=== PATIENT | male | born 1935 | race Caucasian/White ===

== ENCOUNTER → 2016-08-22 | Outpatient (REF) | payer MEDICARE ==
[2016-08-22 12:31] LABS: MEAN CORPUSCULAR HEMOGLOBIN 30.5 pg (27.0-33.0); MEAN CORPUSCULAR HGB CONC 34.2 g/dl (32.0-36.5); MEAN CORPUSCULAR VOLUME 89.4 fl (80.0-96.0); RED CELL DISTRIBUTION WIDTH 12.5 % (11.5-14.5)
[2016-08-22 12:45] LABS: ALBUMIN 3.6 GM/DL (3.2-5.2); ALBUMIN/GLOBULIN RATIO 1.24 (1.00-1.93); ALKALINE PHOSPHATASE 60 U/L (45-117); ALT/SGPT 36 U/L (12-78); ANION GAP 8 MEQ/L (8-16); AST/SGOT 25 U/L (15-37); BILIRUBIN,TOTAL 0.4 MG/DL (0.2-1.0); BLOOD UREA NITROGEN 20 MG/DL (7-18); CALCIUM LEVEL 9.1 MG/DL (8.8-10.2); CARBON DIOXIDE LEVEL 28 MEQ/L (21-32); CHLORIDE LEVEL 107 MEQ/L (98-107); CHOLESTEROL LEVEL 215 MG/DL (<200); CREATININE FOR GFR 1.14 MG/DL (0.70-1.30); GLOMERULAR FILTRATION RATE > 60.0 (>42); GLUCOSE, FASTING 100 MG/DL (83-110); POTASSIUM SERUM 4.4 MEQ/L (3.5-5.1); SODIUM LEVEL 143 MEQ/L (136-145); TOTAL PROTEIN 6.5 GM/DL (6.4-8.2); TRIGLYCERIDES LEVEL 127 MG/DL (<150)
== END | disposition home or self-care (01) ==
LOC: M LABDRAW1 12:04
PROVIDERS: ATTEND Nurse Practitioner Family
DX: E78.5 Hyperlipidemia, unspecified (principal); I10 Essential (primary) hypertension; D53.9 Nutritional anemia, unspecified

== ENCOUNTER → 2016-11-27 | Outpatient (REF) | payer MEDICARE ==
[2016-11-27 12:28] LABS: MEAN CORPUSCULAR HEMOGLOBIN 30.1 pg (27.0-33.0); MEAN CORPUSCULAR HGB CONC 34.2 g/dl (32.0-36.5); MEAN CORPUSCULAR VOLUME 88.1 fl (80.0-96.0); RED CELL DISTRIBUTION WIDTH 12.8 % (11.5-14.5); WHITE BLOOD COUNT 5.7 K/mm3 (4.0-10.0)
[2016-11-27 12:37] LABS: ALBUMIN 3.6 GM/DL (3.2-5.2); ALBUMIN/GLOBULIN RATIO 1.29 (1.00-1.93); ALKALINE PHOSPHATASE 60 U/L (45-117); ALT/SGPT 25 U/L (12-78); ANION GAP 6 MEQ/L (8-16); AST/SGOT 25 U/L (15-37); BILIRUBIN,TOTAL 0.4 MG/DL (0.2-1.0); BLOOD UREA NITROGEN 18 MG/DL (7-18); CALCIUM LEVEL 8.8 MG/DL (8.8-10.2); CARBON DIOXIDE LEVEL 29 MEQ/L (21-32); CHLORIDE LEVEL 106 MEQ/L (98-107); CHOLESTEROL LEVEL 139 MG/DL (<200); CREATININE FOR GFR 1.17 MG/DL (0.70-1.30); GLOMERULAR FILTRATION RATE > 60.0 (>42); GLUCOSE, FASTING 96 MG/DL (83-110); POTASSIUM SERUM 4.2 MEQ/L (3.5-5.1); SODIUM LEVEL 141 MEQ/L (136-145); TOTAL PROTEIN 6.4 GM/DL (6.4-8.2); TRIGLYCERIDES LEVEL 65 MG/DL (<150)
== END ==
LOC: M LABDRAW1 11:37
PROVIDERS: ATTEND Nurse Practitioner Family
DX: E55.9 Vitamin D deficiency, unspecified (principal); K21.9 Gastro-esophageal reflux disease without esophagitis; E78.00 Pure hypercholesterolemia, unspecified

== ENCOUNTER → 2017-02-05 | Outpatient (CLI) | payer MEDICARE ==
[2017-02-07 00:06] LABS: Lyme Disease IgG/IgM Antibodie <0.91 ISR (0.00-0.90); Lyme Disease IgM Ab Quantitati <0.80 index (0.00-0.79)
== END ==
LOC: M WUC 10:53
PROVIDERS: ATTEND Physician Assistant
DX: S40.862A Insect bite (nonvenomous) of left upper arm, initial encounter (principal); X58.XXXA Exposure to other specified factors, initial encounter; Y92.9 Unspecified place or not applicable; Y93.9 Activity, unspecified; Y99.9 Unspecified external cause status

== ENCOUNTER → 2017-03-05 | Day surgery (SDC) | payer MEDICARE ==
[~2017-03-05] VITALS: Ht 175.3 cm; Wt 78.0 kg
[~2017-03-05] MED LIST: ACETAMINOPHEN 325 MG TAB PO PRN; AcetaZOLAMIDE 500 MG ER CAP As Ordered ONE; AcetaZOLAMIDE 500 MG ER CAP PO ONE; BSS with VANC/TOB/EPI for EYE CASES IR ONE; CRES10TA32 PO; CYCLOPENTOLATE 2% OPHTH SOLN 2ML BTL OD ONE; DOXY-278 PO; HEALON DUET (HEALON 10MG/ML 0.55ML & HEALON ENDOCOAT 30MG/ML 0.85ML) As Ordered ONE; KETOROLAC 0.5% OPHTH SOLN OD ONE; LIDOCAINE 1% SDV 5 ML VIAL As Ordered ONE; LIDOCAINE 4% INJ 5 ML AMP OU ONE; LR 1,000 ML IV ONE; MIDAZOLAM INJ 2 MG/2 ML VIAL (J2250) As Ordered ONE; MOXIFLOXACIN IN BSS 0.25MG/0.25ML INTRACAMERAL INJ (OR EYE ONLY)(J2280) As Ordered ONE; OFLOXACIN 0.3 % (OCUFLOX) OPTH SOL 5ML OD ONE; PHENYLEPHRINE 2.5% OPHTH SOL 2ML OD ONE; POVIDONE-IODINE 5% OPHTH PREP SOL 30ML As Ordered ONE; PRIL20CA9 PO; PROPARACAINE 0.5% OPHTH SOL 15ML OD PRN; TRIAMCINOLONE PRES FR 40 MG/ML 1ML(TRIESENCE)(OR EYE ONLY)(J3300 PER 1MG) As Ordered ONE; TRIMETHOBENZAMIDE 300 MG CAP PO PRN; TROPICAMIDE 1% OPHTH SOLN 2ML OD ONE; fentaNYL 100 MCG/2 ML INJECTION (J3010) As Ordered ONE
--- NOTE | 2017-03-05 08:54 | RO ---
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 PROCEDURE: Phacoemulsification and intraocular lens implantation PCB00, power 19.5 diopters and placement of the Malyugin ring 7 mm. SURGEON: Dr. Alyssa Shi TELEGRAPH OFFICE MANAGER: None. ANESTHESIA: Local with monitored anesthesia care (MAC). COMPLICATION: None. DESCRIPTION OF PROCEDURE: Patient was brought to the operating room and laid in supine position. The eye was prepped and draped in a sterile fashion for opthalmic surgery, and a lid speculum was placed. Sideport incision was made, and EndoCoat was injected into the anterior chamber. Temporal clear corneal incision was made with a 2.5 mm keratome, and Malyugin ring 7 mm was then inserted to dilate the pupil. Capsulorrhexis was then done followed by hydrodissection and rotation of the nucleus within the capsular bag. Phacoemulsification was then done in a [id number] method with the usual settings, followed by aspiration of the cortex. Healon was then placed in the capsular bag and intraocular lens inserted. Malyugin ring was then removed. Excess viscoelastic was then aspirated. Intracameral moxifloxacin was given followed by sub-Tenon's Kenalog injection. Lid speculum was removed and patient returned to recovery room in stable condition. Edited: [facility] 03/08/2017 [id number]
[2017-03-05 09:00] VITALS: BP 174/83
== END | disposition home or self-care (01) ==
LOC: M SDC 06:24
PROVIDERS: ATTEND Ophthalmology
DX: H26.9 Unspecified cataract (principal); H57.03 Miosis; K21.9 Gastro-esophageal reflux disease without esophagitis; E78.00 Pure hypercholesterolemia, unspecified; M47.9 Spondylosis, unspecified; Z79.899 Other long term (current) drug therapy
CPT/HCPCS: 66982; J2250; J2280; J3010; J3300; V2632

== ENCOUNTER → 2017-03-13 | Day surgery (SDC) | payer MEDICARE ==
[~2017-03-13] VITALS: Ht 175.3 cm; Wt 78.0 kg
[~2017-03-13] MED LIST changes: -AcetaZOLAMIDE 500 MG ER CAP As Ordered ONE; +BALANCED SALT IRRIGATION SOLUTION 500ML BAG (FOR OR EYE MACHINE) As Ordered ONE; -BSS with VANC/TOB/EPI for EYE CASES IR ONE; +CYCLOPENTOLATE 2% OPHTH SOLN 2ML BTL As Ordered ONE; -CYCLOPENTOLATE 2% OPHTH SOLN 2ML BTL OD ONE; +CYCLOPENTOLATE 2% OPHTH SOLN 2ML BTL OS ONE; -KETOROLAC 0.5% OPHTH SOLN OD ONE; +KETOROLAC 0.5% OPHTH SOLN OS ONE; -LR 1,000 ML IV ONE; +LR 500 ML IV ONE; +OFLOXACIN 0.3 % (OCUFLOX) OPTH SOL 5ML As Ordered ONE; -OFLOXACIN 0.3 % (OCUFLOX) OPTH SOL 5ML OD ONE; +OFLOXACIN 0.3 % (OCUFLOX) OPTH SOL 5ML OS ONE; +PHENYLEPHRINE 2.5% OPHTH SOL 2ML As Ordered ONE; -PHENYLEPHRINE 2.5% OPHTH SOL 2ML OD ONE; +PHENYLEPHRINE 2.5% OPHTH SOL 2ML OS ONE; -PROPARACAINE 0.5% OPHTH SOL 15ML OD PRN; +PROPARACAINE 0.5% OPHTH SOL 15ML OS PRN; +TROPICAMIDE 1% OPHTH SOLN 2ML As Ordered ONE; -TROPICAMIDE 1% OPHTH SOLN 2ML OD ONE; +TROPICAMIDE 1% OPHTH SOLN 2ML OS ONE
[2017-03-13 12:00] VITALS: BP 140/82
== END | disposition home or self-care (01) ==
LOC: M SDC 09:20
PROVIDERS: ATTEND Ophthalmology
DX: H26.9 Unspecified cataract (principal); E78.00 Pure hypercholesterolemia, unspecified; K21.9 Gastro-esophageal reflux disease without esophagitis; M47.9 Spondylosis, unspecified; Z79.899 Other long term (current) drug therapy
CPT/HCPCS: 66984; J2250; J2280; J3010; J3300; V2632

== ENCOUNTER → 2017-07-10 | Outpatient (CLI) | payer MEDICARE ==
[~2017-07-10] MED LIST changes: -ACETAMINOPHEN 325 MG TAB PO PRN; -AcetaZOLAMIDE 500 MG ER CAP PO ONE; -BALANCED SALT IRRIGATION SOLUTION 500ML BAG (FOR OR EYE MACHINE) As Ordered ONE; -CYCLOPENTOLATE 2% OPHTH SOLN 2ML BTL As Ordered ONE; -CYCLOPENTOLATE 2% OPHTH SOLN 2ML BTL OS ONE; -HEALON DUET (HEALON 10MG/ML 0.55ML & HEALON ENDOCOAT 30MG/ML 0.85ML) As Ordered ONE; -KETOROLAC 0.5% OPHTH SOLN OS ONE; -LIDOCAINE 1% SDV 5 ML VIAL As Ordered ONE; -LIDOCAINE 4% INJ 5 ML AMP OU ONE; -LR 500 ML IV ONE; -MIDAZOLAM INJ 2 MG/2 ML VIAL (J2250) As Ordered ONE; -MOXIFLOXACIN IN BSS 0.25MG/0.25ML INTRACAMERAL INJ (OR EYE ONLY)(J2280) As Ordered ONE; -OFLOXACIN 0.3 % (OCUFLOX) OPTH SOL 5ML As Ordered ONE; -OFLOXACIN 0.3 % (OCUFLOX) OPTH SOL 5ML OS ONE; -PHENYLEPHRINE 2.5% OPHTH SOL 2ML As Ordered ONE; -PHENYLEPHRINE 2.5% OPHTH SOL 2ML OS ONE; -POVIDONE-IODINE 5% OPHTH PREP SOL 30ML As Ordered ONE; -PROPARACAINE 0.5% OPHTH SOL 15ML OS PRN; -TRIAMCINOLONE PRES FR 40 MG/ML 1ML(TRIESENCE)(OR EYE ONLY)(J3300 PER 1MG) As Ordered ONE; -TRIMETHOBENZAMIDE 300 MG CAP PO PRN; -TROPICAMIDE 1% OPHTH SOLN 2ML As Ordered ONE; -TROPICAMIDE 1% OPHTH SOLN 2ML OS ONE; -fentaNYL 100 MCG/2 ML INJECTION (J3010) As Ordered ONE
[2017-07-10 10:04] LABS: MEAN CORPUSCULAR HEMOGLOBIN 30.8 pg (27.0-33.0); MEAN CORPUSCULAR HGB CONC 33.9 g/dl (32.0-36.5); MEAN CORPUSCULAR VOLUME 90.9 fl (80.0-96.0); PLATELET COUNT, AUTOMATED 246 10^3/uL (150-450); RED CELL DISTRIBUTION WIDTH 12.9 % (11.5-14.5); WHITE BLOOD COUNT 5.3 10^3/uL (4.0-10.0)
[2017-07-10 10:36] LABS: ALBUMIN 3.5 GM/DL (3.2-5.2); ALBUMIN/GLOBULIN RATIO 1.46 (1.00-1.93); ALKALINE PHOSPHATASE 59 U/L (45-117); ALT/SGPT 43 U/L (12-78); ANION GAP 6 MEQ/L (8-16); AST/SGOT 37 U/L (7-37); BILIRUBIN,TOTAL 0.5 MG/DL (0.2-1.0); BLOOD UREA NITROGEN 17 MG/DL (7-18); CALCIUM LEVEL 8.6 MG/DL (8.8-10.2); CARBON DIOXIDE LEVEL 27 MEQ/L (21-32); CHLORIDE LEVEL 108 MEQ/L (98-107); CHOLESTEROL LEVEL 138 MG/DL (<200); CREATININE FOR GFR 0.98 MG/DL (0.70-1.30); GLOMERULAR FILTRATION RATE > 60.0 (>35); GLUCOSE, FASTING 101 MG/DL (83-110); POTASSIUM SERUM 4.4 MEQ/L (3.5-5.1); SODIUM LEVEL 141 MEQ/L (136-145); TOTAL PROTEIN 5.9 GM/DL (6.4-8.2); TRIGLYCERIDES LEVEL 54 MG/DL (<150)
[2017-07-10 10:40] LABS: VITAMIN B12 LEVEL 1488 PG/ML (247-911)
== END ==
LOC: M LABDRAW1 07:44
PROVIDERS: ATTEND Nurse Practitioner Family
DX: E55.9 Vitamin D deficiency, unspecified (principal); I10 Essential (primary) hypertension; E78.00 Pure hypercholesterolemia, unspecified

== ENCOUNTER 2017-10-27 11:17 | Emergency (ER) | payer MEDICARE | END 2017-10-27 12:47 | disposition home or self-care (01) | LOC: M ED 11:17 | DX: S83.91XA Sprain of unspecified site of right knee, initial encounter (principal); M17.11 Unilateral primary osteoarthritis, right knee; X50.1XXA Overexertion from prolonged static or awkward postures, initial encounter; Y92.39 Other specified sports and athletic area as the place of occurrence of the external cause; E78.9 Disorder of lipoprotein metabolism, unspecified; K21.9 Gastro-esophageal reflux disease without esophagitis; Z79.899 Other long term (current) drug therapy | CPT/HCPCS: 73564 ==

== ENCOUNTER → 2018-01-16 | Outpatient (CLI) | payer MEDICARE ==
[2018-01-17 10:23] LABS: APPEARANCE, URINE CLEAR (CLEAR); BACTERIA, URINE AUTO NEGATIVE (NEGATIVE); BILIRUBIN, URINE AUTO NEGATIVE (NEGATIVE); BLOOD, URINE BLOOD NEGATIVE (NEGATIVE); COLOR, URINE YELLOW (YELLOW); GLUCOSE, URINE (UA) AUTO NEGATIVE (NEGATIVE); KETONE, URINE AUTO NEGATIVE (NEGATIVE); LEUKOCYTE ESTERASE, URINE AUTO NEGATIVE (NEGATIVE); NITRITE, URINE AUTO NEGATIVE (NEGATIVE); PROTEIN, URINE AUTO NEGATIVE (NEGATIVE); RBC, URINE AUTO 0 /HPF (0-3); SPECIFIC GRAVITY URINE AUTO 1.014 (1.002-1.035); SQUAMOUS EPITHELIAL CELL UR AU 0 /HPF (0-6); UROBILINOGEN, URINE AUTO 0.2 mg/dL (0.0-2.0); WBC, URINE AUTO 0 /HPF (0-3)
== END ==
LOC: M SMT 11:34
DX: Z12.5 Encounter for screening for malignant neoplasm of prostate (principal); Z79.899 Other long term (current) drug therapy
CPT/HCPCS: G0103

== ENCOUNTER → 2018-01-30 | Outpatient (CLI) | payer MEDICARE ==
[~2018-01-30] MED LIST changes: -CRES10TA32 PO; -DOXY-278 PO; +ISOVUE-370 76% 100ML VIAL (Q9967) As Ordered; -PRIL20CA9 PO
== END ==
LOC: M RAD 16:41
DX: R31.0 Gross hematuria (principal)
CPT/HCPCS: Q9967

== ENCOUNTER → 2018-02-25 | Outpatient (REF) | payer MEDICARE ==
[2018-02-25 10:52] LABS: CPK CREATINE PHOSPHOKINASE 134 U/L (39-308)
== END ==
LOC: M LAB REF 10:24
DX: M79.1 Myalgia (principal)
CPT/HCPCS: 82550

== ENCOUNTER → 2018-07-19 | Outpatient (REF) | payer MEDICARE ==
[2018-07-19 13:07] LABS: ALBUMIN 3.5 GM/DL (3.2-5.2); ALBUMIN/GLOBULIN RATIO 1.17 (1.00-1.93); ALKALINE PHOSPHATASE 67 U/L (45-117); ALT/SGPT 28 U/L (12-78); ANION GAP 7 MEQ/L (8-16); AST/SGOT 23 U/L (7-37); BILIRUBIN,TOTAL 0.6 MG/DL (0.2-1.0); BLOOD UREA NITROGEN 17 MG/DL (7-18); CALCIUM LEVEL 8.4 MG/DL (8.8-10.2); CARBON DIOXIDE LEVEL 27 MEQ/L (21-32); CHLORIDE LEVEL 105 MEQ/L (98-107); CHOLESTEROL LEVEL 186 MG/DL (<200); CHOLESTEROL RISK RATIO 4.043 (<5); CPK CREATINE PHOSPHOKINASE 226 U/L (39-308); CREATININE FOR GFR 1.16 MG/DL (0.70-1.30); GLOMERULAR FILTRATION RATE > 60.0 (>35); GLUCOSE, FASTING 98 MG/DL (70-100); HDL CHOLESTEROL 46 MG/DL (>40); LDL CHOLESTEROL 124 MG/DL (<100); NON-HDL-C 140 MG/DL; POTASSIUM SERUM 4.2 MEQ/L (3.5-5.1); SODIUM LEVEL 139 MEQ/L (136-145); TOTAL 25(OH) VITAMIN D 53.4 NG/ML (30.0-100.0); TOTAL PROTEIN 6.5 GM/DL (6.4-8.2); TRIGLYCERIDES LEVEL 82 MG/DL (<150); VITAMIN B12 LEVEL 1274 PG/ML (247-911)
== END ==
LOC: M LABDRAW1 09:19
DX: E78.00 Pure hypercholesterolemia, unspecified (principal); E55.9 Vitamin D deficiency, unspecified; D51.0 Vitamin B12 deficiency anemia due to intrinsic factor deficiency
CPT/HCPCS: 82550

== ENCOUNTER → 2018-12-20 | Outpatient (REF) | payer MEDICARE ==
[~2018-12-20] MED LIST changes: +CRES10TA PO; +DOXY-350 PO; -ISOVUE-370 76% 100ML VIAL (Q9967) As Ordered; +PERC5TAB12 PO; +PRIL20CA9 PO
[2018-12-20 14:19] LABS: APPEARANCE, URINE CLEAR (CLEAR); BACTERIA, URINE AUTO NEGATIVE (NEGATIVE); BILIRUBIN, URINE AUTO NEGATIVE (NEGATIVE); BLOOD, URINE BLOOD NEGATIVE (NEGATIVE); COLOR, URINE STRAW (YELLOW); GLUCOSE, URINE (UA) AUTO NEGATIVE (NEGATIVE); KETONE, URINE AUTO NEGATIVE (NEGATIVE); LEUKOCYTE ESTERASE, URINE AUTO NEGATIVE (NEGATIVE); NITRITE, URINE AUTO NEGATIVE (NEGATIVE); PROTEIN, URINE AUTO NEGATIVE (NEGATIVE); RBC, URINE AUTO 0 /HPF (0-3); SPECIFIC GRAVITY URINE AUTO 1.005 (1.002-1.035); SQUAMOUS EPITHELIAL CELL UR AU 0 /HPF (0-6); UROBILINOGEN, URINE AUTO 0.2 mg/dL (0.0-2.0); WBC, URINE AUTO 0 /HPF (0-3)
== END ==
LOC: M SMT 12:39
PROVIDERS: ATTEND Urology
DX: R31.0 Gross hematuria (principal)

== ENCOUNTER → 2019-01-15 | Outpatient (REF) | payer MEDICARE ==
[2019-01-15 12:02] LABS: HEMATOCRIT 44.7 % (42.0-52.0); HEMOGLOBIN 14.8 g/dl (13.5-17.5); MEAN CORPUSCULAR HEMOGLOBIN 29.3 pg (27.0-33.0); MEAN CORPUSCULAR HGB CONC 33.1 g/dl (32.0-36.5); MEAN CORPUSCULAR VOLUME 88.5 fl (80.0-96.0); PLATELET COUNT, AUTOMATED 239 10^3/uL (150-450); RED BLOOD COUNT 5.05 10^6/uL (4.30-6.10); WHITE BLOOD COUNT 6.3 10^3/uL (4.0-10.0)
[2019-01-15 12:12] LABS: ALBUMIN 3.3 GM/DL (3.2-5.2); ALT/SGPT 28 U/L (12-78); BILIRUBIN,TOTAL 0.4 MG/DL (0.2-1.0); BLOOD UREA NITROGEN 20 MG/DL (7-18); CALCIUM LEVEL 8.5 MG/DL (8.8-10.2); CARBON DIOXIDE LEVEL 28 MEQ/L (21-32); CHLORIDE LEVEL 107 MEQ/L (98-107); CHOLESTEROL LEVEL 132 MG/DL (<200); CHOLESTEROL RISK RATIO 3.142 (<5); CPK CREATINE PHOSPHOKINASE 214 U/L (39-308); CREATININE FOR GFR 1.23 MG/DL (0.70-1.30); GLOMERULAR FILTRATION RATE > 60.0 (>35); GLUCOSE, FASTING 95 MG/DL (70-100); HDL CHOLESTEROL 42 MG/DL (>40); LDL CHOLESTEROL 76 MG/DL (<100); NON-HDL-C 90 MG/DL; POTASSIUM SERUM 4.8 MEQ/L (3.5-5.1); SODIUM LEVEL 143 MEQ/L (136-145); TOTAL PROTEIN 6.4 GM/DL (6.4-8.2); TRIGLYCERIDES LEVEL 72 MG/DL (<150)
[2019-01-15 12:16] LABS: TOTAL 25(OH) VITAMIN D 35.2 NG/ML (30.0-100.0)
[2019-01-15 12:17] LABS: VITAMIN B12 LEVEL 670 PG/ML (247-911)
== END ==
LOC: M LABDRAW1 07:37
PROVIDERS: ATTEND Nurse Practitioner Family
DX: I10 Essential (primary) hypertension (principal); E78.00 Pure hypercholesterolemia, unspecified; E55.9 Vitamin D deficiency, unspecified; D64.9 Anemia, unspecified

== ENCOUNTER → 2019-07-16 | Outpatient (REF) | payer MEDICARE ==
[2019-07-16 11:36] LABS: HEMATOCRIT 47.5 % (42.0-52.0); HEMOGLOBIN 15.5 g/dl (13.5-17.5); MEAN CORPUSCULAR HGB CONC 32.6 g/dl (32.0-36.5); MEAN CORPUSCULAR VOLUME 92.1 fl (80.0-96.0); PLATELET COUNT, AUTOMATED 241 10^3/uL (150-450); RED BLOOD COUNT 5.16 10^6/uL (4.30-6.10); WHITE BLOOD COUNT 6.7 10^3/uL (4.0-10.0)
[2019-07-16 11:51] LABS: ALBUMIN 3.5 GM/DL (3.2-5.2); ALT/SGPT 31 U/L (12-78); BILIRUBIN,TOTAL 0.4 MG/DL (0.2-1.0); BLOOD UREA NITROGEN 23 MG/DL (7-18); CALCIUM LEVEL 8.9 MG/DL (8.8-10.2); CARBON DIOXIDE LEVEL 27 MEQ/L (21-32); CHLORIDE LEVEL 107 MEQ/L (98-107); CHOLESTEROL LEVEL 152 MG/DL (<200); CHOLESTEROL RISK RATIO 3.377 (<5); CPK CREATINE PHOSPHOKINASE 199 U/L (39-308); CREATININE FOR GFR 1.21 MG/DL (0.70-1.30); GLOMERULAR FILTRATION RATE > 60.0 (>35); GLUCOSE, FASTING 100 MG/DL (70-100); HDL CHOLESTEROL 45 MG/DL (>40); LDL CHOLESTEROL 88 MG/DL (<100); NON-HDL-C 107 MG/DL; POTASSIUM SERUM 4.5 MEQ/L (3.5-5.1); SODIUM LEVEL 141 MEQ/L (136-145); TOTAL 25(OH) VITAMIN D 25.4 NG/ML (30.0-100.0); TOTAL PROTEIN 6.3 GM/DL (6.4-8.2); TRIGLYCERIDES LEVEL 97 MG/DL (<150)
== END ==
LOC: M LABDRAW1 07:35
PROVIDERS: ATTEND Nurse Practitioner Family
DX: I10 Essential (primary) hypertension (principal); E78.5 Hyperlipidemia, unspecified; E55.9 Vitamin D deficiency, unspecified

== ENCOUNTER 2020-09-12 20:44 | Emergency (ER) | payer MEDICARE ==
[~2020-09-12] VITALS: Ht 175.3 cm; Wt 82.0 kg
[2020-09-12] MEDS ORDERED: SILD100T7 (20:59)
[2020-09-12] MEDS ORDERED: DEXA4TA (20:59)
[2020-09-12] MEDS ORDERED: AZIT-12 (20:59)
[2020-09-12 22:03] LABS: BASO % 0.2 % (0.0-1.0); HEMATOCRIT 42.2 % (42.0-52.0); LYMPH # 0.6 10^3/uL (1.5-5.0); LYMPH % 8.8 % (24.0-44.0); MEAN CORPUSCULAR HEMOGLOBIN 28.8 pg (27.0-33.0); MEAN CORPUSCULAR HGB CONC 33.2 g/dl (32.0-36.5); MEAN CORPUSCULAR VOLUME 86.8 fl (80.0-96.0); MONO # 0.9 10^3/uL (0.0-0.8); MONO % 13.9 % (0.0-5.0); NEUTROPHILS # 4.9 10^3/uL (1.5-8.5); NEUTROPHILS % 76.8 % (36.0-66.0); PLATELET COUNT, AUTOMATED 159 10^3/uL (150-450); RED BLOOD COUNT 4.86 10^6/uL (4.30-6.10); WHITE BLOOD COUNT 6.4 10^3/uL (4.0-10.0)
[2020-09-12 22:15] LABS: INR 1.04; PROTHROMBIN TIME 13.8 SECONDS (12.5-14.3)
[2020-09-12 22:16] LABS: PARTIAL THROMBOPLASTIN TIME 26.7 SECONDS (24.2-38.5)
[2020-09-12 22:18] LABS: D-DIMER QUANT 752.52 ng/ml (<500)
[2020-09-12 22:28] LABS: ALT/SGPT 29 U/L (12-78); BLOOD UREA NITROGEN 21 MG/DL (7-18); CARBON DIOXIDE LEVEL 23 MEQ/L (21-32); CHLORIDE LEVEL 102 MEQ/L (98-107); CK-MB VALUE MASS 4.6 NG/ML (<3.6); CPK CREATINE PHOSPHOKINASE 240 U/L (39-308); CREATININE FOR GFR 1.21 MG/DL (0.70-1.30); GLOMERULAR FILTRATION RATE > 60.0 (>35); GLUCOSE, FASTING 121 MG/DL (70-100); LDH LACTATE DEHYDROGENASE 200 U/L (87-241); MB/CK RELATIVE INDEX 1.92 (< OR =4); POTASSIUM SERUM 3.9 MEQ/L (3.5-5.1); SODIUM LEVEL 135 MEQ/L (136-145)
[2020-09-12 22:29] LABS: ALBUMIN 3.2 GM/DL (3.2-5.2); BILIRUBIN,TOTAL 0.3 MG/DL (0.2-1.0); C REACTIVE PROTEIN QUANTITATIV 1.32 MG/DL (0.00-0.30); FERRITIN 128 NG/ML (26-388); MAGNESIUM LEVEL 1.7 MG/DL (1.8-2.4); TOTAL PROTEIN 6.4 GM/DL (6.4-8.2); TROPONIN I < 0.02 NG/ML (< 0.10)
--- NOTE | 2020-09-12 22:29 | REPVR ---
PROCEDURE INFORMATION: Exam: XR Chest, 1 View Exam date and time: 09/12/2020 10:05 PM Age: 85 years old Clinical indication: Shortness of breath; Additional info: Coronavirus workup TECHNIQUE: Imaging protocol: XR of the chest Views: 1 view. COMPARISON: No relevant prior studies available. FINDINGS: Lungs: Unremarkable. No consolidation or infiltrates. Pleural space: Unremarkable. No pleural effusion. No pneumothorax. Heart/Mediastinum: Unremarkable. No cardiomegaly. Bones/joints: Unremarkable. IMPRESSION: Negative chest. Electronically signed by: Andrea Chapa On 09/12/2020 22:29:22 PM
[2020-09-12] MEDS ORDERED: ACETAMINOPHEN 325 MG TAB PO ONE (23:00)
[2020-09-12] MEDS ORDERED: NS 1,000 ML IV SCH (23:11)
[2020-09-12] MEDS ORDERED: ALBUTEROL 90 MCG/ACT 8GM HFA INHALER INH PRN (23:15)
[2020-09-12] MEDS ORDERED: methylPREDNISolone 125MG 2ML VIAL IV PRN (23:15)
[2020-09-12] MEDS ORDERED: ALBUTEROL SULFATE 2.5 MG/0.5 ML INH NEB SOLN INH PRN (23:15)
[2020-09-12] MEDS ORDERED: diphenhydrAMINE 50MG/ML VIAL (J1200) IV PRN (23:15)
[2020-09-12] MEDS ORDERED: EPINEPHrine INJ 1 MG/ML 1ML AMP IM PRN (23:15)
[2020-09-12] MEDS ORDERED: BAMLANIVIMAB 700 MG in NS 250 ML IV ONE (23:15)
--- NOTE | 2020-09-12 23:38 | HPEPDOC ---
[facility] Medical History & Physical History and Physical CHIEF COMPLAINT: HISTORY OF PRESENT ILLNESS: PAST MEDICAL HISTORY: 1. . 2. . 3. . PAST SURGICAL HISTORY: 1. . 2. . 3. . SOCIAL HISTORY: Marital status: . Resides in: Children: Employment: Tobacco use: ETOH: Illicit drug use: Tattoos done unprofessionally: . IV drug use: Other relevant social factors: FAMILY HISTORY: Father: Mother: Siblings: Children: Hereditary Diseases: Unexpected deaths due to medical reasons: ALLERGIES: Please see below. REVIEW OF SYSTEMS: CONSTITUTIONAL: . HEENT: . CARDIOVASCULAR: . RESPIRATORY: . GASTROINTESTINAL: . GENITOURINARY: . SKIN: . MUSCULOSKELETAL: . NEUROLOGICAL: . PSYCHIATRIC: . ENDOCRINE: . HEMATOLOGIC/LYMPHATIC: . HOME MEDICATIONS: Please see below. PHYSICAL EXAMINATION: VITAL SIGNS: Temperature , pulse , respiratory rate , blood pressure , pulse oximetry % on room air. GENERAL APPEARANCE: . HEENT: . CARDIOVASCULAR: . LUNGS: . ABDOMEN: . MUSCULOSKELETAL: . EXTREMITIES: . NEUROLOGICAL: . PSYCHIATRIC: . LABORATORY DATA: See below. IMAGING: MICROBIOLOGY: Please see below. ASSESSMENT: . . PLAN: 1. . Vital Signs Vital Signs Date Time Temp Pulse Resp B/P (MAP) Pulse Ox O2 Delivery O2 Flow Rate FiO2 09/12/20 20:45 99.5 88 20 150/87 (108) 96 Room Air Laboratory Data Labs 24H Laboratory Tests 2 09/12/20 21:41: Immature Granulocyte % (Auto) 0.3, Neutrophils (%) (Auto) 76.8H, Lymphocytes (%) (Auto) 8.8L, Monocytes (%) (Auto) 13.9H, Eosinophils (%) (Auto) 0.0, Basophils (%) (Auto) 0.2, Neutrophils # (Auto) 4.9, Lymphocytes # (Auto) 0.6L, Monocytes # (Auto) 0.9H, Eosinophils # (Auto) 0.0, Basophils # (Auto) 0.0, Nucleated Red Blood Cells % (auto) 0.0, Prothrombin Time 13.8, Prothromb Time International Ratio 1.04, Activated Partial Thromboplast Time 26.7, Fibrinogen 390, D-Dimer, Quantitative 752.52H, Urine Color YELLOW, Urine Appearance CLEAR, Urine pH 5.0, Urine Specific [place] 1.019, Urine Protein 2+H, Urine Glucose (UA) NEGATIVE, Urine Ketones NEGATIVE, Urine Blood 1+H, Urine Nitrite NEGATIVE, Urine Bilirubin NEGATIVE, Urine Urobilinogen 0.2, Urine Leukocyte Esterase NEGATIVE, Urine WBC (Auto) 1, Urine RBC (Auto) 7H, Urine Hyaline Casts (Auto) 0, Urine Bacteria (Auto) NEGATIVE, Urine Squamous Epithelial Cells 0, Urine Mucus (Auto) SMALL, Urine Sperm (Auto) , Anion Gap 10, Glomerular Filtration Rate > 60.0, Lactic Acid Level 1.5, Calcium Level 8.0L, Magnesium Level 1.7L, Ferritin 128, Total Bilirubin 0.3, Aspartate Amino Transf (AST/SGOT) 27, Alanine Aminotransferase (ALT/SGPT) 29, Alkaline Phosphatase 63, Lactate Dehydrogenase 200, Total Creatine Kinase 240, Creatine Kinase MB 4.6H, Creatine Kinase MB Relative Index 1.92, Troponin I < 0.02, C-Reactive Protein, Quantitative 1.32H, Total Protein 6.4, Albumin 3.2, Albumin/Globulin Ratio 1.0 CBC/BMP Laboratory Tests 09/12/20 21:41 Microbiology Microbiology 09/12/20 Blood Culture, Received Pending 09/12/20 Blood Culture, Received Pending Home Medications Scheduled Omeprazole (Prilosec) 20 Mg Cap, 20 MG PO DAILY Rosuvastatin Calcium (Crestor) 10 Mg Tab, 10 MG PO DAILY Scheduled PRN Oxycodone HCl/Acetaminophen (Percocet 5-325 mg Tablet) 1 Tab Tab, 1 TAB PO Q6H PRN for PAIN Miscellaneous Medications Azithromycin (Azithromycin) 250 Mg Tablet Dexamethasone (Dexamethasone) 4 Mg Tablet Sildenafil Citrate (Sildenafil Citrate) 100 Mg Tablet Allergies Coded Allergies: No Known Allergies (Verified , 03/05/17) FOX CHUNG MD Sep 12, 2020 23:38
[2020-09-13 00:30] VITALS: BP 169/82
--- NOTE | 2020-09-13 07:05 | ECGEPIP ---
[facility] - ED Test Date: 2020-09-12 Pat Name: ARCHIE BURNHAM Department: Room: - Gender: Male [employer]: : [id number] Requested By: VARINDER GARCIA Order Number: [id number] Reading MD: Alexey Nava Measurements Intervals [place] Rate: 79 P: 63 WI: 145 QRS: 56 QRSD: 96 T: 36 QT: 346 QTc: 399 Interpretive Statements SINUS RHYTHM NO PRIORS FOR COMPARISON Electronically Signed on 09-13-2020 7:05:26 EST by Alexey Nava
== END 2020-09-13 01:12 | disposition home or self-care (01) ==
LOC: M ED 20:44
DX: U07.1 COVID-19 (principal); K21.9 Gastro-esophageal reflux disease without esophagitis; E78.5 Hyperlipidemia, unspecified; Z79.899 Other long term (current) drug therapy; Z79.2 Long term (current) use of antibiotics
CPT/HCPCS: 71045; 80053; 81001; 82550; 82553; 82728; 83605; 83615; 83735; 84145; 84484; 85025; 85379; 85384; 85610; 85730; 86140; 87040; 93005; 93041; 94760; 99285; M0239; Q0162

== ENCOUNTER 2020-09-13 00:36 | Outpatient (CLI) | payer MEDICARE ==
[~2020-09-13] VITALS: Ht 175.3 cm; Wt 79.0 kg
[2020-09-13] VITALS (9 sets, daily range): BP systolic 96–148; BP diastolic 58–75
--- NOTE | 2020-09-13 00:16 | HPEPDOC ---
[facility] Medical History & Physical Date of Admission Sep 12, 2020 Date of Service: Sep 12, 2020 Attending Physician: FOX CHUNG MD History and Physical TIME OF SERVICE: 1130 CHIEF COMPLAINT: fever HISTORY OF PRESENT ILLNESS: This 85 yr old M who was diagnosed with COVID 19 on Sep 06 presented w c/o fever, chills and sore throat; his girlfriend also has COVID. REVIEW OF SYSTEMS: 12-point review of systems negative except as listed in HPI PAST MEDICAL/ SURGICAL HISTORY: DLP GERD Hernia repair Cataract surgery Hx of hematuria SOCIAL HISTORY: Doesnt smoke FAMILY HISTORY: n/a ALLERGIES: Please see below. HOME MEDICATIONS: Please see below. PHYSICAL EXAMINATION: VITAL SIGNS: Please see below. GENERAL APPEARANCE: NAD HEENT: mask covering lower face CARDIOVASCULAR: RRR/NMRG/ LUNGS: CTAB on RA MUSCULOSKELETAL: SHANIQUA x 4 NEUROLOGICAL: speech not dysarthric PSYCHIATRIC: A&Ox 3 LABORATORY DATA: WBC 6.4, Hg 14, Plt 159, d-dimer 752 (below age adjusted upper limit of 830), Na 135,K 3.9, Cl 102, CO2 23, BUN 21, Cr 1.21, Gluc 121 IMAGING: Chest xray IMPRESSION: Negative chest. ASSESSMENT: is an 85 yr old M w a hx of DLP who will receive out pt infusion of Bamlanivimab for COVID-19. PLAN: 1. COVID -19 Plan: out pt COVID order set LATE ENTRY 231am I was informed by CAROL Castellano that the patients BP dropped from 169/82 in the ER to 84/58 when he got up to move out of the hospital bed #Hypotension Plan: 1L NS/ monitor vitals with low threshold to transition to in pt admission Home Medications Scheduled Omeprazole (Prilosec) 20 Mg Cap, 20 MG PO DAILY Rosuvastatin Calcium (Crestor) 10 Mg Tab, 10 MG PO DAILY Scheduled PRN Oxycodone HCl/Acetaminophen (Percocet 5-325 mg Tablet) 1 Tab Tab, 1 TAB PO Q6H PRN for PAIN Miscellaneous Medications Azithromycin (Azithromycin) 250 Mg Tablet Dexamethasone (Dexamethasone) 4 Mg Tablet Sildenafil Citrate (Sildenafil Citrate) 100 Mg Tablet Allergies Coded Allergies: No Known Allergies (Verified , 03/05/17) A-FIB/CHADSVASC A-FIB History Current/History of A-Fib/PAF?: No Current PO Anticoag Therapy: No FOX CHUNG MD Sep 13, 2020 00:16
[~2020-09-13 00:36] MED LIST changes: +ALBUTEROL 90 MCG/ACT 8GM HFA INHALER INH PRN; +ALBUTEROL SULFATE 2.5 MG/0.5 ML INH NEB SOLN INH PRN; +AZIT-12; +BAMLANIVIMAB 700 MG in NS 250 ML IV ONE; +DEXA4TA; +EPINEPHrine INJ 1 MG/ML 1ML AMP IM PRN; +NS 1,000 ML IV SCH; +SILD100T7; +diphenhydrAMINE 50MG/ML VIAL (J1200) IV PRN; +methylPREDNISolone 125MG 2ML VIAL IV PRN
[2020-09-13] MEDS ORDERED: NS 1,000 ML IV ONE (01:45)
[2020-09-13] MEDS ORDERED: ONDANSETRON 4 MG ORAL DISINTEGRATING TAB PO PRN (02:00)
== END 2020-09-13 04:10 | disposition home or self-care (01) ==
LOC: M OPCLI4 00:36 → M 4MAIN 00:37 → M OPCLI4 04:10
PROVIDERS: ATTEND Internal Medicine
DX: U07.1 COVID-19 (principal)